=== PATIENT | female | born 1995 | race Caucasian/White ===

== ENCOUNTER 2020-10-04 22:26 | Emergency (ER) | payer OTHER ==
[~2020-10-04] VITALS: Ht 162.6 cm; Wt 88.9 kg
[2020-10-04] MEDS ORDERED: LEXA1TAB PO (22:40)
[2020-10-04 23:45] VITALS: BP 114/73
[2020-10-04] MEDS ORDERED: KETOROLAC 60MG 2ML VIAL IM ONE (23:50)
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
[2020-10-05] MEDS ORDERED: NAPR-837 PO (02:37)
== END 2020-10-05 02:54 | disposition home or self-care (01) ==
LOC: M ED 22:26
DX: M62.830 Muscle spasm of back (principal); V49.40XA Driver injured in collision with unspecified motor vehicles in traffic accident, initial encounter; Y92.9 Unspecified place or not applicable; Y93.9 Activity, unspecified; Y99.9 Unspecified external cause status
CPT/HCPCS: 71101; 96372; 99284; J1885

== ENCOUNTER → 2021-04-03 | Outpatient (REF) ==
[~2021-04-03] MED LIST: LEXA1TAB PO; NAPR-837 PO
== END ==
LOC: M LABSMTC 09:15
PROVIDERS: ATTEND Family Medicine
DX: Z20.822 Contact with and (suspected) exposure to COVID-19 (principal)

== ENCOUNTER → 2021-08-14 | Outpatient (REF) | payer OTHER | LOC: M LAB REF 19:18 | PROVIDERS: ATTEND Physician Assistant | DX: N39.0 Urinary tract infection, site not specified (principal) ==

== ENCOUNTER → 2022-03-30 | Outpatient (CLI) | payer OTHER | LOC: M WUC 10:29 | PROVIDERS: ATTEND Physician Assistant | DX: S63.512A Sprain of carpal joint of left wrist, initial encounter (principal) ==